=== PATIENT | male | born 1960 | race Caucasian/White ===

== ENCOUNTER → 2021-08-16 | Outpatient (CLI) | payer OTHER ==
[~2021-08-16] VITALS: Ht 170.2 cm; Wt 90.3 kg
[~2021-08-16] MED LIST: ASPI-1444 PO; ATOR40TA28 PO; EMPA10TA PO; INSU100I3 SQ; INSU300I3 SQ; NITR0.4T50 SL; SACU1TAB PO; TIZA-211 PO; TRAZ-257 PO
[2021-08-16 14:56] VITALS: BP 107/72
== END | disposition home or self-care (01) ==
LOC: SRCNTR 14:26
PROVIDERS: ATTEND Internal Medicine
DX: I10 Essential (primary) hypertension (principal); E11.9 Type 2 diabetes mellitus without complications; E78.5 Hyperlipidemia, unspecified; I25.10 Atherosclerotic heart disease of native coronary artery without angina pectoris; Z87.891 Personal history of nicotine dependence
CPT/HCPCS: 93005; G0463

== ENCOUNTER 2021-09-05 07:55 | Day surgery (SDC) | payer OTHER ==
[2021-09-04 13:48] LABS: COVID AG,FIA SOURCE NASAL SWAB
[2021-09-04 13:51] LABS: BASOPHILS % (AUTO) 1.2 % (0.0-2.0); EOSINOPHILS % (AUTO) 9.8 % (1.0-6.0); HEMATOCRIT 48.8 % (41-53); HEMOGLOBIN 16.2 g/dL (13.5-17.5); LYMPHOCYTES # (AUTO) 1.6 K/uL (1.0-4.8); LYMPHOCYTES % (AUTO) 33.8 % (22.0-44.0); MEAN CORPUSCULAR HEMOGLOBIN 30.5 pg (26.0-34.0); MEAN CORPUSCULAR HGB CONC 33.2 G/dL (31.0-37.0); MEAN CORPUSCULAR VOLUME 92 fL (80-100); MONOCYTES # (AUTO) 0.5 K/uL (0.1-1.0); MONOCYTES % (AUTO) 11.4 % (2.0-9.0); NEUTROPHILS # (AUTO) 2.1 K/uL (1.8-7.7); NEUTROPHILS % (AUTO) 43.8 % (40.0-70.0); PLATELET COUNT (AUTO) 282 K/uL (150-450); RED BLOOD CELL COUNT(AUTO) 5.32 MIL/uL (4.50-5.90); RED CELL DISTRIBUTION WIDTH 14.4 % (11.5-14.5)
[2021-09-04 13:58] LABS: ANION GAP 5 mmol/L (8-16); CALCIUM, TOTAL 9.6 mg/dL (8.8-10.5); CARBON DIOXIDE 29 mmol/L (22-29); CHLORIDE 102 mmol/L (98-107); CREATININE 1.08 mg/dL (0.60-1.30); GLUCOSE,RANDOM 127 mg/dL (70-110); POTASSIUM 5.1 mmol/L (3.5-5.1); SODIUM SERUM 136 mmol/L (136-145); UREA NITROGEN, BLOOD 16 mg/dL (7-18)
[2021-09-04 14:00] LABS: GLOMERULAR FILTR. RATE CALC > 60 mL/min (>60)
[2021-09-04 14:04] LABS: ALANINE AMINOTRANSFERASE 39 U/L (12-78); ALKALINE PHOSPHATASE 72 U/L (46-116); ASPARTATE AMINOTRANSFERASE 25 U/L (15-37); TOTAL PROTEIN, SERUM 7.8 g/dL (6.4-8.2)
[2021-09-04 14:13] LABS: PROTHROMBIN TIME 10.1 SEC (9.4-11.6)
[~2021-09-05] VITALS: Ht 170.2 cm; Wt 88.2 kg
[~2021-09-05 07:55] MED LIST changes: +SODIUM CHLORIDE 0.9% 1,000 ML ONE
[2021-09-05] MEDS ORDERED: SODIUM CHLORIDE 0.9% 1,000 ML IV ONE (08:00)
[2021-09-05 08:46] LABS: GLUCOMETER DEV NAME(LOC) SDS.; GLUCOSE,POINT OF CARE 135 MG/DL (70-110)
[2021-09-05] MEDS ORDERED: FentaNYL CITRATE PF 100 MCG/2 ML VIAL ONE (09:04)
[2021-09-05] MEDS ORDERED: VERAPAMIL HCL 2.5 MG/ML 2 ML VIAL ONE (09:04)
[2021-09-05] MEDS ORDERED: MIDAZOLAM HCL 2 MG/2 ML VIAL ONE (09:04)
[2021-09-05] MEDS ORDERED: HEPARIN SODIUM,PORCINE 1,000 UNITS/ML 10 ML VIAL ONE (09:05)
[2021-09-05] MEDS ORDERED: SODIUM BICARBONATE 50 MEQ/50 ML VIAL ONE (09:05)
[2021-09-05] MEDS ORDERED: HEPARIN SODIUM 1000 UNITS/NS 1,000 ML ONE (09:05)
[2021-09-05] MEDS ORDERED: IOHEXOL 300 MG/ML 50 ML VIAL ONE (09:05)
[2021-09-05] MEDS ORDERED: NITROGLYCERIN 50 MG/D5% WATER 250 ML ONE (09:05)
[2021-09-05] MEDS ORDERED: IOHEXOL 300 MG/ML 150 ML VIAL ONE (09:05)
[2021-09-05] MEDS ORDERED: LIDOCAINE/PF 1% 30 ML VIAL ONE (09:05)
[2021-09-05] MEDS ORDERED: IOHEXOL 300 MG/ML 100 ML VIAL ONE (09:05)
[2021-09-05] MEDS ORDERED: LIDOCAINE 1% 30 ML/SOD BICARB 8.4% 4 ML SQ ONE (10:00)
[2021-09-05] MEDS ORDERED: IOHEXOL 300 MG/ML 150 ML VIAL ICOR ONE (10:00)
[2021-09-05] MEDS ORDERED: NITROGLYCERIN/D5W 50 MG/250 ML IV BOTTLE IARTER ONE (10:00)
[2021-09-05] MEDS ORDERED: VERAPAMIL HCL 2.5 MG/ML 2 ML VIAL IARTER ONE (10:00)
[2021-09-05] MEDS ORDERED: HEPARIN SODIUM 1000 UNITS/NS 1,000 ML IARTER ONE (10:00)
[2021-09-05] MEDS ORDERED: HEPARIN SODIUM,PORCINE 1,000 UNITS/ML 10 ML VIAL IARTER ONE (10:00)
[2021-09-05 10:13] VITALS: BP 145/73
== END 2021-09-05 12:55 | disposition home or self-care (01) ==
LOC: CATHLAB 07:55
PROVIDERS: ATTEND Internal Medicine
DX: R94.39 Abnormal result of other cardiovascular function study (principal); I25.10 Atherosclerotic heart disease of native coronary artery without angina pectoris; E78.00 Pure hypercholesterolemia, unspecified; E11.9 Type 2 diabetes mellitus without complications; Z79.01 Long term (current) use of anticoagulants; Z98.890 Other specified postprocedural states; Z87.891 Personal history of nicotine dependence; Z79.4 Long term (current) use of insulin; Z79.899 Other long term (current) drug therapy
CPT/HCPCS: 36415; 80053; 82962; 85025; 85610; 85730; 87426; 93458; C9803; J1644 ×2; J3490 ×4; J7030; Q9967; J2250; J3010